=== PATIENT | female | born 1950 | race Caucasian/White ===

== ENCOUNTER 2021-02-03 09:30 | Outpatient (RCR) | payer MEDICARE, SELFPAY ==
--- NOTE | 2020-10-20 15:19 | HP.PTEVAL ---
Patient's Visit Information RAUDEL ULLOA is a 70 year old F referred to Physical Therapy by JOANNE IRWIN with a diagnosis of Closed displaced fracture of proximal end of L humerus. Date of Evaluation: 10/20/20 Physical Therapist: ABDULAZIZ Carey - Visit Plan Frequency: 2x /Week Duration: 6 Weeks Plan: 2X/ week for PROM and progressing to AAROM when able and then postural, scpular and RC strengthening when able with HEP - Subjective She fell 10-10-2020 at about 10:00 am and fractured L proximal L Humerus. [facility]. SHe was sent home and went up to [facility]. Saw Dr Irwin and he thought PT was the best option at this point. She wears the sling all the time and sleeps in it in a recliner. She sees the Dr at the end of the month. The pain has calmed down a lot. She takes Alieve in between the narcottic. She took one about 11:00 cause she is bracing herself for PT. Stuggles to get self care due to arm. Little bit of trouble out of a chair and needs UE support to get out of a chair. - Pain L shoulder Pain Intensity (Out of 10): 0 - Objective PROM L shoulder: 101 flexion, 90 abd, 65 ER. Sit to stand: in waiting room pt needed help from her and verbacl cues to use the chair railing to help her get out of the chair. Instructed pt and family in how to wear her sling and to wear it on the outside of her shirt as she had to on but not correctly. Instructed pt and family in how to lay down on her back with shoulder propped to be able to sleep in her own bed at night. Instructed pt and family in how to do pendulums to be able to wash under her arm pit. Instructed pt in AA L bicep curls using her R hand to assisit. - Goals Goal 1:: I HEP for strengthening and ROM Goal Time Frame: 4-6 Weeks Goal 2:: Increase L shoulder AROM to 160 degrees painfree elevation Goal Time Frame: 4-6 Weeks Goal 3:: Be able to use her L arm for ADL's without pain Goal Time Frame: 4-6 Weeks Goal 4:: Be able to sleep full night in her bed without pain Goal Time Frame: 4-6 Weeks - Rehabilitation Potential Rehabilitation Potential: Good - Anticipated Interventions Thank you for the opportunity to evaluate your patient. For Medicare and Medicare HMO plans, please review the plan of care and approve it. It will need to be FAXED BACK to us at [phone] for Medicare purposes. For Medicare only, by signing this I certify the plan of care. Please let me know if there are questions or concerns regarding this plan of care. Physician Signature: Date:
--- NOTE | 2020-11-10 14:44 | HP.PTREVAL ---
JOANNE HOLM, It has been my pleasure to treat RAUDEL ULLOA over the last 7 visits for Closed displaced fracture of proximal end of L humerus. Please see the progress note below for an update on the physical therapy plan of care! Subjective: Pt will see December 16. Pt reports that Dr feel that she can start AAROM in 6 weeks and not to get her shoulder to the point of cracking sound. Pt feels PT has helped a lot but she still can not wash her hair or use her arm to do anything functional. Objective/Function: Pt has PROM L shoulder to approx 130 degress PROM L shoulder flex and approx 140 degrees L shld abd PROM. Pt has increase cracking not painful if we go too far into IR or too far into elevation. Pt able to start Phase II (AAROM) in 2 weeks.... Plan Plan: GET ADDITIONAL INSURANCE APPROVAL... 2 X/ WEEK FOR 6 WEEKS FOR AAROM.. pt will RTD IN december to be released for strengthening.... released to AAROM in 2 weeks. See new order--- AAROM at 6 weeks. Goals Goal 1:: I HEP for strengthening and ROM Goal Time Frame: 4-6 Weeks Goal 2:: Increase L shoulder AROM to 160 degrees painfree elevation Goal Time Frame: 4-6 Weeks Goal 3:: Be able to use her L arm for ADL's without pain Goal Time Frame: 4-6 Weeks Goal 4:: Be able to sleep full night in her bed without pain Goal Time Frame: 4-6 Weeks Goal Progress: Progressing Anticipated Interventions Please do not hesitate to contact me at [phone] by phone or if you have questions or concerns regarding this new plan of care! Sincerely, Michelle Melendez, MPT
--- NOTE | 2021-02-03 10:11 | HP.PTREVAL ---
JOANNE HOLM, It has been my pleasure to treat RAUDEL ULLOA over the last 17 visits for Closed displaced fracture of proximal end of L humerus. Please see the progress note below for an update on the physical therapy plan of care! 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 She has had a lot of traveling due to and illness with family members. Pt would like additional visits as she still can not do the above ADL's and some housework type stuff. Objective/Function: R shoulder flexion 96 degrees AROM R MMT flexion 3-/5. R shoulder abd 82 degrees AROM R MMT abd 3-/5. R Shoulder ER 55 degrees R MMT ER 3+/5. IR of the shoulder IR L1 R MMT IR 4/5. R shoulder flexion PROM 130 degrees. Pt still likes to move her whole body with her exercises and needs verbal and tactile cues to do them correctly. Additional PT visits would be recommended Plan Plan: Submit for further visits to gain more ROM and strength and complete ADL;s. Work on AAROM and progress strengthening starting with isometrics and progressing as able. Pt def needs to work on strengthening. She is doing cane exercises at home and will look into getting pulleys. HEP given with pictures: standing wand flex, abd, and wall washes. orange band mid rows, yellow band IR/ER with towel Goals Goal 1:: I HEP for strengthening and ROM Goal Time Frame: 4-6 Weeks Goal Progress: Progressing Goal 2:: Increase L shoulder AROM to 160 degrees painfree elevation Goal Time Frame: 4-6 Weeks Goal Progress: Progressing Goal 3:: Be able to use her L arm for ADL's without pain Goal Time Frame: 4-6 Weeks Goal Progress: Progressing Goal 4:: Be able to sleep full night in her bed without pain Goal Time Frame: 4-6 Weeks Goal Progress: Goal Met Goal 5:: Increase R Flex/abd and ER/IR strength to 4/5 Goal Time Frame: 4-6 Weeks Goal Progress: Progressing Goal 6:: Be able to do her hair with her R hand Goal Time Frame: 4-6 Weeks Anticipated Interventions Please do not hesitate to contact me at [phone] by phone or if you have questions or concerns regarding this new plan of care! Sincerely, Michelle Melendez, MPT
== END 2021-02-03 19:00 | disposition home or self-care (01) ==
LOC: PT 09:30
PROVIDERS: PCP Family Medicine
DX: S42.292D Other displaced fracture of upper end of left humerus, subsequent encounter for fracture with routine healing (principal)
CPT/HCPCS: 97110; 97140; 97161; 97530